=== PATIENT | female | born 1995 | race African-American/Black ===

== ENCOUNTER 2017-06-08 11:49 | Emergency (ER) | payer OTHER ==
[~2017-06-08] VITALS: Ht 157.5 cm; Wt 68.2 kg
[2017-06-08 11:50] VITALS: BP 117/54
[2017-06-08] MEDS ORDERED: NAPR500T PO (15:24)
[2017-06-08] MEDS ORDERED: MAXA10TA15 PO (15:24)
== END 2017-06-08 15:28 | disposition home or self-care (01) ==
LOC: M ED 11:49
DX: G43.909 Migraine, unspecified, not intractable, without status migrainosus (principal)

== ENCOUNTER → 2018-11-29 | Outpatient (CLI) | payer OTHER ==
[~2018-11-29] MED LIST: MAXA10TA15 PO; NAPR-50 PO
--- NOTE | 2018-11-29 13:54 | PFTRPT ---
Height: 62.00 Inches Weight: 153.00 Lbs BSA: 1.71 Diagnosis: SOB DATE OF STUDY: 11/29/2018 ORDERED BY: Dr. Milo Rangel Spirometry: Pre and post bronchodilator study of excellent technical quality. Forced vital capacity normal. FEV1 borderline in proportion. Obstructive index is, therefore, borderline as well. Flow Volume Loop: Expiratory limb of the flow volume loop does suggest flow rate limitation. Favorable bronchodilator response is identified. Lung Volumes: Total lung capacity is normal. Residual volume is in proportion. Diffusing Capacity: Diffusing capacity normal. Hemoglobin: No hemoglobin available for correction. Airway Mechanics: Airway resistance and conductance are normal. IMPRESSION: Obstructive ventilatory impairment with favorable bronchodilator response. Please correlate clinically. MTDD
== END ==
LOC: M CARPUL 10:00
PROVIDERS: ATTEND Emergency Medicine
DX: R06.02 Shortness of breath (principal)

== ENCOUNTER → 2019-01-25 | Outpatient (REF) | payer OTHER ==
[~2019-01-25] MED LIST changes: -NAPR-50 PO; +NAPR-837 PO
[2019-01-25 18:40] LABS: BASO % 0.4 % (0.0-1.0); EOS % 0.4 % (0.0-3.0); HEMATOCRIT 35.4 % (36.0-47.0); HEMOGLOBIN 11.4 g/dl (12.0-15.5); LYMPH # 2.3 10^3/uL (1.5-6.5); LYMPH % 28.4 % (24.0-44.0); MEAN CORPUSCULAR HEMOGLOBIN 30.9 pg (27.0-33.0); MEAN CORPUSCULAR HGB CONC 32.2 g/dl (32.0-36.5); MEAN CORPUSCULAR VOLUME 95.9 fl (80.0-96.0); MONO # 0.6 10^3/uL (0.0-0.8); MONO % 6.8 % (0.0-5.0); NEUTROPHILS # 5.1 10^3/uL (1.8-7.7); NEUTROPHILS % 63.8 % (36.0-66.0); PLATELET COUNT, AUTOMATED 328 10^3/uL (150-450); RED BLOOD COUNT 3.69 10^6/uL (4.00-5.40); WHITE BLOOD COUNT 8.1 10^3/uL (4.0-10.0)
[2019-01-25 18:41] LABS: ALBUMIN 3.3 GM/DL (3.2-5.2); ALT/SGPT 33 U/L (12-78); BILIRUBIN,TOTAL 0.4 MG/DL (0.2-1.0); BLOOD UREA NITROGEN 13 MG/DL (7-18); CALCIUM LEVEL 8.6 MG/DL (8.5-10.1); CARBON DIOXIDE LEVEL 28 MEQ/L (21-32); CHLORIDE LEVEL 107 MEQ/L (98-107); CREATININE FOR GFR 0.77 MG/DL (0.55-1.30); GLOMERULAR FILTRATION RATE > 60.0 (>60); GLUCOSE, FASTING 74 MG/DL (70-100); POTASSIUM SERUM 3.8 MEQ/L (3.5-5.1); SODIUM LEVEL 139 MEQ/L (136-145); TOTAL PROTEIN 6.6 GM/DL (6.4-8.2)
== END ==
LOC: M LABNEURO 13:25
PROVIDERS: ATTEND Psychiatry & Neurology Neurology
DX: Z51.81 Encounter for therapeutic drug level monitoring (principal); R51 Headache